=== PATIENT | male | born 1990 | race Caucasian/White ===

== ENCOUNTER 2018-10-16 04:03 | Emergency (ER) | payer SELFPAY ==
[~2018-10-16] VITALS: Ht 182.9 cm; Wt 98.6 kg
[2018-10-16 04:05] VITALS: Ht 182.9 cm; Wt 98.6 kg
[2018-10-16] MEDS ORDERED: ZOVIRAX200 MG PO (04:14)
[2018-10-16 05:00] VITALS: BP 142/89
== END 2018-10-16 05:00 | disposition home or self-care (01) ==
LOC: D.ER 04:03
DX: B00.89 Other herpesviral infection (principal); A64 Unspecified sexually transmitted disease; R36.9 Urethral discharge, unspecified

== ENCOUNTER 2019-12-24 08:48 | Emergency (ER) | payer SELFPAY ==
[~2019-12-24] VITALS: Ht 185.4 cm; Wt 102.3 kg
[~2019-12-24 08:48] MED LIST: ZOVIRAX200 MG PO
[2019-12-24 08:53] VITALS: Ht 185.4 cm; Wt 102.3 kg
[2019-12-24] MEDS ORDERED: AMOXICILLIN500 M1 PO (10:15)
[2019-12-24 11:33] VITALS: BP 133/90
== END 2019-12-24 11:35 | disposition home or self-care (01) ==
LOC: D.ER 08:48
DX: J02.0 Streptococcal pharyngitis (principal); R09.81 Nasal congestion; R05 Cough; Z20.828 Contact with and (suspected) exposure to other viral communicable diseases